=== PATIENT | male | born 1960 | race Caucasian/White ===

== ENCOUNTER 2021-04-23 09:47 | Emergency (ER) | payer BC ==
[~2021-04-23] VITALS: Ht 185.4 cm; Wt 127.9 kg
[2021-04-23] MEDS ORDERED: PIOGLITAZONE HC15 MG PO (14:56)
[2021-04-23] MEDS ORDERED: ATORVASTATIN CA10 MG PO (14:56)
[2021-04-23] MEDS ORDERED: METFORMIN HCL500 M1 PO (14:56)
[2021-04-23] MEDS ORDERED: GLIMEPIRIDE4 MG PO (14:56)
[2021-04-23] MEDS ORDERED: SUTAB 1.479-1.479 GM PO (14:56)
[2021-04-23] MEDS ORDERED: JARDIANCE10 MG PO (14:57)
--- NOTE | 2021-04-24 18:52 | EKG ---
[facility] [address] [place], [place] [address] Signed Normal sinus rhythm Left axis deviation Low voltage QRS Cannot rule out Anterior infarct , age undetermined Abnormal ECG No previous ECGs available Confirmed by MELISSA HANSON DO ([id number]) on 04/24/2021 6:52:44 PM Electronically Signed By: MELISSA HANSON DO 04/24/211851 PATIENT NAME: JEREMÍAS COTA Electrocardiogram DATE OF : 56 PHYSICIAN: MELISSA HANSON DO REPORT #: [id number] REPORT IS CONFIDENTIAL AND NOT TO BE RELEASED WITHOUT AUTHORIZATION
== END 2021-04-23 14:48 | disposition home or self-care (01) ==
LOC: ED 09:47
DX: U07.1 COVID-19 (principal); Z23 Encounter for immunization; E11.9 Type 2 diabetes mellitus without complications; K21.9 Gastro-esophageal reflux disease without esophagitis
CPT/HCPCS: 71045; 80053; 83880; 84484; 85025; 85379; 93005; 93010; 99284-25; C9803; M0247; U0003